=== PATIENT | female | born 2000 | race African-American/Black ===

== ENCOUNTER 2024-12-09 13:50 | Emergency (ER) | payer SELFPAY ==
[~2024-12-09] VITALS: Ht 175.3 cm; Wt 85.0 kg
[2024-12-09 14:02] VITALS: O2SAT 100
[2024-12-09] MEDS: LIDOCAINE HCL 1% 20ML VIAL INFIL ONE (16:15)
[2024-12-09] MEDS: IBUPROFEN 600MG TABLET PO ONE (16:58)
[2024-12-09] MEDS: BACITRACIN ZINC OINT UDPKT TOP ONE (17:04)
[2024-12-09] MEDS ORDERED: CEPH500T MT (17:34)
[2024-12-09] MEDS ORDERED: SULF1TAB48 MT (17:34)
[2024-12-09] MEDS ORDERED: IBUP-1455 MT (17:34)
[2024-12-09 17:55] VITALS: BP 118/46; PULSE 91; RESP 14; TEMP 36.7; O2SAT 99
== END 2024-12-09 18:01 | disposition home or self-care (01) ==
LOC: ER 13:50
DX: L02.416 Cutaneous abscess of left lower limb (principal); Z79.899 Other long term (current) drug therapy
CPT/HCPCS: 10060; 99283